=== PATIENT | male | born 1950 | race Caucasian/White ===

== ENCOUNTER 2016-10-05 11:16 | Emergency (ER) | payer MEDICARE ==
[~2016-10-05] VITALS: Ht 170.2 cm; Wt 61.4 kg
[2016-10-05 11:24] VITALS: BP 148/100; PULSE 79; RESP 20; O2SAT 98
--- NOTE | 2016-10-05 11:34 | ED.REPORT ---
HPI-General Illness Date of Service Oct 05, 2016 ED Provider: Nimesh Pederson MD Pt is a 66 y/o male presenting to the ED with his due to multiple medical complaints related to recent life stressors which have been going on for about 2 months. Pt reports recent weight loss, decreased appetite, intermittent constipation for 2 weeks, insomnia, depression, vague suicidal ideations without plan, confusion without disorientation. He came in today by request of his . His is unsure whether this is psychiatric or physical. He has no history of psychiatric or physical problems. He denies alcohol or drug use. He is a retired maintenance machinist. He believes his depression is caused by his recent attempt to sell a house which did not go smoothly. He believes he caused problems in this endeavor. He does not experience nausea with eating. He does not that he experiences some right sided abdominal pain while/after eating. He denies fever, chills, SOB, N/V/D, CP, bloody stools. He has a family history of dementia in his father. He has no PCP at this time. Nursing Notes Stated Complaint: UNABLE TO SLEEP,WEIGHT LOSS,LOSS OF APPETITE Chief Complaint: Psychiatric Complaint Nursing Notes Reviewed: Yes Allergies: Coded Allergies: No Known Allergies (Unverified , 10/05/16) Scheduled PRN Aspirin (Aspirin) 81 Mg Tablet 81 MG PO WEEKLY PRN PRN For Anxiety Miscellaneous Medications Krill Oil (Krill Oil) 500 Mg Capsule 500 MG PO General Time Seen by MD: 11:33 Chief Complaint Multip medical complaints Hx Obtained From: Patient Arrived By: Walk-in Sudden in Onset?: No Symptom Duration: Since onset Severity: Current: No pain currently Severity: Maximum: No pain Past Medical History Past Medical History Hx of asthma Past Surgical History Tonsillectomy Fatty 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 Smoking History Former Smoker Social History Alcohol Use: Denies alcohol use Drug Use: Denies drug use Ambulatory Status Independent Review of Systems + loss of appetite Full Review of Systems Constitutional: Reports: Recent wt loss, Denies: Chills, Fever Respiratory: Denies: Non-productive cough, Shortness of breath Cardiovascular: Denies: Chest pain GI: Denies: Abdominal pain, Diarrhea, Nausea, Vomiting Psychiatric: Reports: Confusion, Depression, Insomnia, Stress, Suicidal ideation, Denies: Agitation, Delusional, Hallucinations, auditory, Hallucinations, visual, Homicidal ideation, Hostile, Unable to control self Complete sys rev & neg: except as marked. Physical Exam Vital Signs Vital Signs Date Time Temp Pulse Resp B/P Pulse Ox O2 Delivery O2 Flow Rate FiO2 10/05/16 11:24 36.5 79 20 148/100 98 Room Air Initial VS: Reviewed, Vital signs normal Head / Eyes: Atraumatic, Normocephalic, PERRL ENT: Mucous membranes moist, Conjunctiva normal, No scleral icterus Neck: Supple, Full range of motion Respiratory: Breath sounds normal, Clear to auscultation, No respiratory distress Cardiovascular: Regular rate & rhythm, Heart sounds normal, Intact distal pulses Abdomen / GI: Soft, Non-tender, No guarding, No rebound, No distention Extremities: Vascular intact, Neuro intact, No swelling, No tenderness Skin: Warm, Dry, No cyanosis General/Constitutional: Awake, Alert, No acute distress, Well appearing, Cooperative, Not toxic appearing ENT: Atraumatic, Airway patent Mouth: Positive: Mucous membranes dry (mild) Neurologic: Oriented X3, Speech NL, No motor deficits, No sensory deficits, CN II - XII intact, Cerebellar NL Psychiatric: Not suicidal (vague suicidal thoughts), Not homicidal, No hallucinations, Cognitive function NL, Judgment/insight NL Abnormal Mood/Affect: Positive: Depressed, Flat affect Future oriented Interpretation & Diagnostics Lab Results Interpretation Result Diagram: 10/05/16 1310 10/05/16 1310 Test 10/05/16 12:30 10/05/16 13:10 White Blood Count 10.2th/mm3 (3.8-10.1) Red Blood Count 5.26mil/mm3 (4.40-5.80) Hemoglobin 16.6g/dL (13.8-17.2) Hematocrit 48.1% (41.0-50.0) Mean Corpuscular Volume 91.4fL (81-100) Mean Corpuscular Hemoglobin 31.6pg (27.0-35.0) Mean Corpuscular Hemoglobin Concent 34.5% (32.0-37.0) Red Cell Distribution Width 13.1% (12.3-15.4) Platelet Count 351bil/L (150-400) Neutrophils (%) (Auto) 74.3% (40-74) Lymphocytes (%) (Auto) 16.7% (14-46) Monocytes (%) (Auto) 7.7% (4-12) Eosinophils (%) (Auto) 0.7% (0-5) Basophils (%) (Auto) 0.4% (0-3) Sodium Level 138mEq/L (134-144) Potassium Level 4.0mEq/L (3.5-5.2) Chloride Level 98mEq/L (97-108) Carbon Dioxide Level 24mmol/L (18-29) Blood Urea Nitrogen 13mg/dL (8-27) Creatinine 0.79mg/dL (0.76-1.27) Estimat Glomerular Filtration Rate 104mL/min (>59) Glucose Level 106mg/dL (60-99) Calcium Level 9.3mg/dL (8.5-10.1) Total Bilirubin 0.5mg/dL (0.0-1.2) Aspartate Amino Transf (AST/SGOT) 31U/L (0-50) Alanine Aminotransferase (ALT/SGPT) 21U/L (0-44) Alkaline Phosphatase 54U/L (25-160) Total Protein 7.6g/dL (6.4-8.4) Albumin 4.4g/dL (3.4-5.0) Thyroid Stimulating Hormone (TSH) 1.560uIU/mL (0.450-4.500) Re-Eval/Medical Decision Med Decision/Clinical Course In summary, the patient is a 66-year-old male with no significant past medical history who presents with several months of vague complaints of decreased appetite, weight loss, generalized fatigue, psychomotor retardation, depression , disordered sleep and anxiety related to multiple recent social stressors. He has no history of substance abuse or psychiatric disease. He has no history of cancer or or chronic illnesses/dementia. Upon arrival the patient seems somewhat depressed though has no concrete suicidal plan or intention. He is accompanied by his . He has stable vital signs and is no apparent distress. Labs notable as below: CBC: Unremarkable CMP: Unremarkable TSH within normal limits Urine tox: negative History of weight loss is somewhat concerning for possible organic etiology of his presentation though his overall clinical picture is that of depression. He provides no specific history suggestive of malignancy such as melena, pain or constitutional symptoms. He is been referred to a primary care physician for further monitoring and routine screening exam such as colonoscopy at this time I do not feel that further workup with imaging studies as indicated. He does not seem significantly decompensated from a psychiatric perspective I do not think that he will require admission. He seems interested in obtaining community resources. The patient was seen and evaluated by social science analyst Kadie Elise and provided with outpatient community psychiatric resources. She also do not feel the patient required admission for psychiatric perspective. Follow- up and return precautions were reviewed in detail with the patient as well as his and they verbalized understanding and agreed with the plan. He was discharged in stable condition with plan for outpatient mental health as well as to establish with a primary care physician. Consultation : Consulted With: curb worker Call Returned at: 14:13 Integration Technician: Will see patient, Agrees with eval, Agrees with plan Counseled Regarding: Diagnosis, Lab results, Need for follow-up, When/why to return to ED Discharge & Departure Primary Impression: Depression Depression Type: unspecified Qualified Code: F32.9 - Major depressive disorder, single episode, unspecified Additional Impressions: Stress Weight loss Psychomotor retardation Decrease in appetite Disposition: Home Discharge Condition All VS Reviewed: Yes Condition: Stable Additional Instructions: Thank you for seeking care at emergency room. It is difficult for us to make definitive diagnoses in the ED but we believe that you are experiencing . Our primary goal today in the ED was to evaluate you for any life-threatening conditions. Your evaluation was reassuring. You will be discharged with a prescription for . You should follow-up with Dr. Yehuda Browning next week. Please discuss routine screening which would include colonoscopy. You should return to the ED immediately if you develop fevers, vomiting, cough, shortness of breath, chest pain, lightheadedness, weakness or any other concerning signs or symptoms. Thank you for letting us partake in your care today. Referrals: Yehuda Browning MD Scribe Attestation Portions of this note were transcribed by Tyson Church. I, Dr. Pederson personally performed the history, physical exam and medical decision-making; I reviewed and confirmed the accuracy of the information in the transcribed note. Signed by Tyson Church - [place] - 10/05/16 - 1136 Nimesh Pederson MD Oct 05, 2016 11:34 TYSON CHURCH Oct 05, 2016 11:37
[2016-10-05] MEDS ORDERED: KRIL500C PO (11:43)
[2016-10-05] MEDS ORDERED: ASPI-973 PO (11:43)
[2016-10-05 13:24] LABS: BASOPHILS % (AUTO) 0.4 % (0-3); EOSINOPHILS % (AUTO) 0.7 % (0-5); MONOCYTES % (AUTO) 7.7 % (4-12); Mean Corpuscular Hemoglobin 31.6 pg (27.0-35.0); Mean Corpuscular Volume 91.4 fL (81-100); NEUTROPHILS % (AUTO) 74.3 % (40-74); Platelet Count 351 bil/L (150-400)
[2016-10-05 14:48] VITALS: BP 124/75; PULSE 82; RESP 15; O2SAT 99
[2016-10-05 14:49] VITALS: BP 124/75; PULSE 82; RESP 15; O2SAT 99
== END 2016-10-05 14:50 | disposition home or self-care (01) ==
LOC: SED 11:16
DX: F32.9 Major depressive disorder, single episode, unspecified (principal); F43.0 Acute stress reaction; R63.4 Abnormal weight loss; R41.843 Psychomotor deficit; R63.0 Anorexia; J45.909 Unspecified asthma, uncomplicated; Z79.82 Long term (current) use of aspirin